=== PATIENT | male | born 1950 | race Caucasian/White ===

== ENCOUNTER 2021-01-06 09:12 | Inpatient (IN) | payer MEDICARE, MEDICAID ==
[~2021-01-06] VITALS: Ht 165.1 cm; Wt 65.0 kg
[2021-01-06] MEDS ORDERED: ACETAMINOPHEN 325MG TABLET PO ONE (09:45)
[2021-01-06 10:53] LABS: BASOPHILS % 0.5 % (0.0-2.0); EOSINOPHILS % 0.4 % (0.0-5.0); HEMATOCRIT. 42.5 % (42.0-52.0); HEMOGLOBIN. 14.5 g/dL (14.0-18.0); LYMPHOCYTES % 10.2 % (20.0-50.0); MEAN CORPUSCULAR HEMOGLOBIN 34.3 pg (28.0-32.0); MEAN CORPUSCULAR VOLUME 100.9 fL (80.0-94.0); MEAN PLATELET VOLUME 10.9 fl (7.4-10.4); MONOCYTES % 8.7 % (2.0-8.0); NEUTROPHILS % 80.2 % (40.0-76.0); PLATELET 59 x1000/uL (130-400); RED BLOOD CELL COUNT 4.21 mill/uL (4.7-6.1); RED CELL DISTRIBUTION WIDTH 14.9 % (11.6-14.6)
[2021-01-06 10:58] LABS: CHLORIDE 95 mEq/L (98-107)
[2021-01-06 11:07] LABS: CREATINE KINASE 75 IU/L (39-308)
[2021-01-06] MEDS ORDERED: CEFTRIAXONE 1 G PREMIX 50 ML IV ONE (14:15)
[2021-01-06] MEDS ORDERED: METRONIDAZOLE 500 MG PREMIX 100 ML IV ONE (14:15)
[2021-01-06 18:51] LABS: CLARITY URINE CLEAR (CLEAR); COLOR URINE ORANGE (YELLOW); KETONES URINE TRACE (NEGATIVE); LEUKOCYTE ESTERASE URINE TRACE (NEGATIVE); NITRITE URINE NEGATIVE (NEGATIVE); OCCULT BLOOD URINE NEGATIVE (NEGATIVE); PROTEIN URINE TRACE (NEGATIVE); SPECIFIC GRAVITY URINE 1.019 (1.005-1.030)
[2021-01-06] MEDS ORDERED: NA PHOS,M-B/NA PHOS,DI-BA ENEMA 118ML PR PRN (20:45)
[2021-01-06] MEDS ORDERED: ONDANSETRON HCL 4MG/2ML INJ IV PRN (20:45)
[2021-01-06] MEDS ORDERED: ACETAMINOPHEN 650MG SUPP PR PRN (20:45)
[2021-01-06] MEDS ORDERED: CLONIDINE 0.1MG TABLET PO PRN (20:45)
[2021-01-06] MEDS ORDERED: DEXTROSE 50% WATER 50ML SYRINGE IV PRN ×2 (20:45→22:30)
[2021-01-06] MEDS ORDERED: GUAIFENESIN 200MG/10ML SUGAR FREE UDC PO PRN (20:45)
[2021-01-06] MEDS ORDERED: PIPERACILLIN/TAZOBACTAM 3.375 G in DEXTROSE 5% WATER 50 ML IV SCH (20:45)
[2021-01-06] MEDS ORDERED: DOCUSATE SODIUM 100MG CAPSULE PO PRN (20:45)
[2021-01-06] MEDS ORDERED: MAGNESIUM/ALUMINUM HYDROXIDE/SIMETHICONE 30ML UDC PO PRN (20:45)
[2021-01-06] MEDS ORDERED: BLOOD SUGAR DIAGNOSTIC STRIP TEST SCH (21:00)
[2021-01-06 21:20] VITALS: BP 123/66
[2021-01-06 21:30] VITALS: BP 123/66
[2021-01-06] MEDS ORDERED: POTASSIUM CHLORIDE INJ 40 MEQ in DEXT 5% WATER 500 ML IV SCH (23:00)
[2021-01-06] MEDS: INSULIN LISPRO 100 UNITS/ML SUBCUT SCH (23:34)
[2021-01-06] MEDS: SODIUM CHLORIDE 0.45% 1,000 ML IV SCH (23:35)
[2021-01-07] VITALS: BP 155/76
[2021-01-07] MEDS ORDERED: METF-414 MT (02:29)
[2021-01-07] MEDS: PIPERACILLIN/TAZOBACTAM 3.375G in DEXT 5% WATER 50ML IV SCH ×4 (03:34→21:34)
[2021-01-07 04:00] VITALS: BP 164/73
[2021-01-07 06:29] LABS: BASOPHILS % 0.9 % (0.0-2.0); EOSINOPHILS % 0.9 % (0.0-5.0); HEMATOCRIT. 41.8 % (42.0-52.0); HEMOGLOBIN. 14.3 g/dL (14.0-18.0); LYMPHOCYTES % 15.9 % (20.0-50.0); MEAN CORPUSCULAR HEMOGLOBIN 34.2 pg (28.0-32.0); MEAN CORPUSCULAR VOLUME 100.3 fL (80.0-94.0); MEAN PLATELET VOLUME 10.9 fl (7.4-10.4); MONOCYTES % 12.8 % (2.0-8.0); NEUTROPHILS % 69.5 % (40.0-76.0); PLATELET 58 x1000/uL (130-400); RED BLOOD CELL COUNT 4.17 mill/uL (4.7-6.1); RED CELL DISTRIBUTION WIDTH 14.7 % (11.6-14.6)
[2021-01-07 06:40] LABS: CHLORIDE 97 mEq/L (98-107)
[2021-01-07 06:46] LABS: LDL CHOLESTEROL 133 mg/dL (5-100)
[2021-01-07 06:47] LABS: HDL CHOLESTEROL 18 mg/dL (40-59)
[2021-01-07] MEDS: BLOOD SUGAR DIAGNOSTIC STRIP TEST SCH ×4 (07:20→21:18)
[2021-01-07] MEDS: INSULIN LISPRO 100 UNITS/ML SUBCUT SCH ×4 (07:50→21:19)
[2021-01-07 08:00] VITALS: BP 156/65
[2021-01-07] MEDS ORDERED: ENOXAPARIN 40MG/0.4ML SYR SUBCUT SCH (09:00)
[2021-01-07 12:00] VITALS: BP 148/69
[2021-01-07] MEDS: SODIUM CHLORIDE 0.45% 1,000 ML IV SCH (13:25)
[2021-01-07 15:26] LABS: AMYLASE 95 IU/L (25-115)
[2021-01-07 16:00] VITALS: BP 136/64
[2021-01-07 20:00] VITALS: BP 138/69
[2021-01-08] VITALS: BP 124/68
[2021-01-08 04:00] VITALS: BP 151/70
[2021-01-08] MEDS: SODIUM CHLORIDE 0.45% 1,000 ML IV SCH ×2 (06:04→22:45)
[2021-01-08] MEDS: PIPERACILLIN/TAZOBACTAM 3.375G in DEXT 5% WATER 50ML IV SCH ×3 (06:04→21:35)
[2021-01-08 07:20] LABS: CHLORIDE 95 mEq/L (98-107)
[2021-01-08] MEDS: BLOOD SUGAR DIAGNOSTIC STRIP TEST SCH ×4 (07:20→21:00)
[2021-01-08] MEDS: INSULIN LISPRO 100 UNITS/ML SUBCUT SCH ×4 (07:50→21:00)
[2021-01-08 08:00] VITALS: BP 151/71
[2021-01-08] MEDS ORDERED: METR500T MT (10:37)
[2021-01-08] MEDS ORDERED: LEVO500T89 MT (10:37)
[2021-01-08] MEDS ORDERED: POTASSIUM CHLORIDE 20MEQ TABLET SR PO NR (10:45)
[2021-01-08] MEDS ORDERED: SODIUM CHLORIDE 0.9% 1000ML BAG (SEPSIS BOLUS) IV ONE (10:45)
[2021-01-08] MEDS ORDERED: SODIUM CHLORIDE 0.9% 500 ML IV NR (10:45)
[2021-01-08] MEDS ORDERED: NALOXONE HCL 0.4MG/ML VIAL IV PRN (11:00)
[2021-01-08 12:00] VITALS: BP 148/85
[2021-01-08] MEDS: HYDROCODONE/ACETAMINOPHEN 5/325MG TABLET PO PRN (13:09)
[2021-01-08 16:00] VITALS: BP 112/59
[2021-01-08 20:00] VITALS: BP_SYST 113; BP_SYST 139; BP_DIAS 61; BP_DIAS 65
[2021-01-08 23:00] LABS: HEMATOCRIT. 38.4 % (42.0-52.0); HEMOGLOBIN. 13.1 g/dL (14.0-18.0); MEAN CORPUSCULAR HEMOGLOBIN 34.3 pg (28.0-32.0); MEAN CORPUSCULAR VOLUME 100.7 fL (80.0-94.0); MEAN PLATELET VOLUME 10.8 fl (7.4-10.4); PLATELET 86 x1000/uL (130-400); RED BLOOD CELL COUNT 3.82 mill/uL (4.7-6.1); RED CELL DISTRIBUTION WIDTH 14.7 % (11.6-14.6)
[2021-01-08 23:16] LABS: PLATELET ESTIMATE DECREASED
[2021-01-09] VITALS (8 sets, daily range): BP systolic 94–171; BP diastolic 54–77
[2021-01-09 06:40] LABS: MEAN CORPUSCULAR HEMOGLOBIN 34.4 pg (28.0-32.0); MEAN CORPUSCULAR VOLUME 100.9 fL (80.0-94.0); MEAN PLATELET VOLUME 11.4 fl (7.4-10.4); PLATELET 79 x1000/uL (130-400); RED BLOOD CELL COUNT 4.06 mill/uL (4.7-6.1); RED CELL DISTRIBUTION WIDTH 14.7 % (11.6-14.6)
[2021-01-09 06:49] LABS: CHLORIDE 98 mEq/L (98-107)
[2021-01-09] MEDS ORDERED: INDOCYANINE GREEN 25 MG VIAL IV ONE (06:53)
[2021-01-09] MEDS ORDERED: LIDOCAINE HCL 1% 20ML VIAL (Pyxis) INJ ONE (06:54)
[2021-01-09] MEDS ORDERED: BUPIVACAINE HCL/PF 0.5% (5MG/ML) 10ML ONE (06:54)
[2021-01-09] MEDS ORDERED: SKIN ADHESIVE 0.7 GM EA TOP ONE (06:54)
[2021-01-09] MEDS ORDERED: POLYMYXIN B SULFATE 500000 UNITS/VIAL ONE (06:55)
[2021-01-09] MEDS: BLOOD SUGAR DIAGNOSTIC STRIP TEST SCH ×5 (07:20→21:00)
[2021-01-09] MEDS ORDERED: MIDAZOLAM HCL 2 MG/2 ML VIAL ONE (07:26)
[2021-01-09] MEDS ORDERED: ROCURONIUM BROMIDE 10MG/ML VIAL 5ML IV ONE ×2 (07:26→10:08)
[2021-01-09] MEDS ORDERED: PROPOFOL 200MG/20ML VIAL IV ONE (07:26)
[2021-01-09] MEDS ORDERED: CEFAZOLIN SODIUM 1000MG/VIAL ONE (07:26)
[2021-01-09] MEDS ORDERED: FENTANYL CITRATE/PF 50MCG/ML 2ML VIAL IV PRN (07:26)
[2021-01-09] MEDS ORDERED: FENTANYL CITRATE/PF 50MCG/ML 2ML VIAL ONE ×2 (07:26→10:52)
[2021-01-09] MEDS ORDERED: LIDOCAINE HCL/PF 1% 10 MG/ML 5ML VIAL ONE (07:26)
[2021-01-09] MEDS: INSULIN LISPRO 100 UNITS/ML SUBCUT SCH ×4 (07:34→21:00)
[2021-01-09] MEDS: PIPERACILLIN/TAZOBACTAM 3.375G in DEXT 5% WATER 50ML IV SCH ×3 (08:00→22:00)
[2021-01-09] MEDS ORDERED: PHENYLEPHRINE HCL 10 MG/ML 1ML (IV VIAL) IV ONE (08:20)
[2021-01-09] MEDS ORDERED: NEOSTIGMINE METHYLSULFATE 1MG/ML 10 ML VIAL ONE (10:26)
[2021-01-09] MEDS ORDERED: GLYCOPYRROLATE 0.2 MG/ML 2ML VIAL ONE (10:26)
[2021-01-09] MEDS ORDERED: ONDANSETRON HCL 4MG/2ML INJ IV PRN (10:30)
[2021-01-09] MEDS ORDERED: MEPERIDINE HCL/PF 25MG/ML CPJ IV PRN (10:30)
[2021-01-09] MEDS: HYDROMORPHONE HCL/PF 2MG/ML CPJ IV PRN ×2 (11:22→11:32)
[2021-01-09 15:25] LABS: PLATELET ESTIMATE DECREASED
[2021-01-09] MEDS: SODIUM CHLORIDE 0.45% 1,000 ML IV SCH (16:33)
[2021-01-09] MEDS ORDERED: SIMETHICONE 80MG TABLET CHEW PO NR (21:30)
[2021-01-09] MEDS ORDERED: SIMETHICONE 40 MG/0.6 ML 30ML PO SCH (21:30)
[2021-01-09] MEDS ORDERED: ONDANSETRON HCL 4MG/2ML INJ IV NR (21:30)
[2021-01-09 23:53] LABS: HEMATOCRIT. 38.3 % (42.0-52.0); MEAN CORPUSCULAR HEMOGLOBIN 34.8 pg (28.0-32.0); MEAN CORPUSCULAR VOLUME 102.6 fL (80.0-94.0); MEAN PLATELET VOLUME 9.7 fl (7.4-10.4); PLATELET 145 x1000/uL (130-400); RED BLOOD CELL COUNT 3.73 mill/uL (4.7-6.1)
[2021-01-10] VITALS: BP 158/81
[2021-01-10 00:03] LABS: INR 1.5; PROTHROMBIN TIME 15.4 sec (9.6-11.0)
[2021-01-10 01:53] LABS: PLATELET ESTIMATE NORMAL
[2021-01-10] MEDS: PIPERACILLIN/TAZOBACTAM 3.375G in DEXT 5% WATER 50ML IV SCH ×3 (06:00→21:42)
[2021-01-10 06:21] LABS: INR 1.5; PROTHROMBIN TIME 15.4 sec (9.6-11.0)
[2021-01-10 06:28] LABS: CHLORIDE 102 mEq/L (98-107)
[2021-01-10 06:32] LABS: BASOPHILS % 0.3 % (0.0-2.0); EOSINOPHILS % 0.3 % (0.0-5.0); HEMATOCRIT. 37.5 % (42.0-52.0); HEMOGLOBIN. 12.7 g/dL (14.0-18.0); LYMPHOCYTES % 8.8 % (20.0-50.0); MEAN CORPUSCULAR HEMOGLOBIN 34.6 pg (28.0-32.0); MEAN CORPUSCULAR VOLUME 101.9 fL (80.0-94.0); MEAN PLATELET VOLUME 10.3 fl (7.4-10.4); MONOCYTES % 14.3 % (2.0-8.0); NEUTROPHILS % 76.3 % (40.0-76.0); PLATELET 143 x1000/uL (130-400); RED BLOOD CELL COUNT 3.68 mill/uL (4.7-6.1); RED CELL DISTRIBUTION WIDTH 15.2 % (11.6-14.6)
[2021-01-10] MEDS: INSULIN LISPRO 100 UNITS/ML SUBCUT SCH ×4 (07:50→21:47)
[2021-01-10 08:00] VITALS: BP 138/71
[2021-01-10] MEDS: SODIUM CHLORIDE 0.45% 1,000 ML IV SCH (08:40)
[2021-01-10 12:00] VITALS: BP 126/77
[2021-01-10] MEDS: BLOOD SUGAR DIAGNOSTIC STRIP TEST SCH ×3 (12:56→21:41)
[2021-01-10] MEDS: HYDROCODONE/ACETAMINOPHEN 5/325MG TABLET PO PRN ×2 (13:08→21:45)
[2021-01-10 13:16] LABS: HEPATITIS B SURFACE ANTIGEN NEGATIVE
[2021-01-10 16:00] VITALS: BP 141/71
[2021-01-10 20:00] VITALS: BP 141/71
[2021-01-10] MEDS: TAMSULOSIN HCL 0.4MG SR CAPSULE PO SCH (21:42)
[2021-01-11] VITALS: BP 130/64
[2021-01-11 04:00] VITALS: BP 138/73
[2021-01-11] MEDS: PIPERACILLIN/TAZOBACTAM 3.375G in DEXT 5% WATER 50ML IV SCH ×2 (05:27→14:56)
[2021-01-11] MEDS: SODIUM CHLORIDE 0.45% 1,000 ML IV SCH (05:27)
[2021-01-11] MEDS: HYDROCODONE/ACETAMINOPHEN 5/325MG TABLET PO PRN ×2 (05:34→11:10)
[2021-01-11] MEDS: BLOOD SUGAR DIAGNOSTIC STRIP TEST SCH ×4 (07:38→21:08)
[2021-01-11] MEDS: INSULIN LISPRO 100 UNITS/ML SUBCUT SCH ×4 (07:50→21:41)
[2021-01-11] MEDS: TAMSULOSIN HCL 0.4MG SR CAPSULE PO SCH (09:31)
[2021-01-11 12:00] VITALS: BP 140/47
[2021-01-11 12:45] LABS: HEMATOCRIT. 33.5 % (42.0-52.0); HEMOGLOBIN. 11.4 g/dL (14.0-18.0); MEAN CORPUSCULAR HEMOGLOBIN 34.6 pg (28.0-32.0); MEAN CORPUSCULAR VOLUME 101.3 fL (80.0-94.0); PLATELET 106 x1000/uL (130-400); RED BLOOD CELL COUNT 3.31 mill/uL (4.7-6.1); RED CELL DISTRIBUTION WIDTH 14.5 % (11.6-14.6)
[2021-01-11 13:39] LABS: PLATELET ESTIMATE SLIGHTLY DECREASED
[2021-01-11 20:00] VITALS: BP 150/85
[2021-01-11] MEDS ORDERED: INFLUENZA VACCINE 05/PF 0.5 ML SYRINGE IM ONE (22:30)
[2021-01-12] VITALS: BP 160/72
[2021-01-12 04:00] VITALS: BP 158/80
[2021-01-12] MEDS ORDERED: LORAZEPAM 0.5MG TABLET PO PRN (06:15)
[2021-01-12] MEDS: BLOOD SUGAR DIAGNOSTIC STRIP TEST SCH ×3 (07:30→17:40)
[2021-01-12] MEDS: INSULIN LISPRO 100 UNITS/ML SUBCUT SCH ×3 (07:30→17:58)
[2021-01-12 08:00] VITALS: BP 166/84
[2021-01-12] MEDS: TAMSULOSIN HCL 0.4MG SR CAPSULE PO SCH (09:07)
[2021-01-12 12:00] VITALS: BP 138/78
[2021-01-12 15:07] VITALS: BP 138/78
[2021-01-12 16:00] VITALS: BP 143/54
[2021-01-13] MEDS ORDERED: ENOXAPARIN 40MG/0.4ML SYR SUBCUT SCH (21:00)
== END 2021-01-12 19:48 | DRG 417 ==
LOC: ER 09:46 → MICUSO 14:05 → 6EST 19:35
PROVIDERS: ADMIT Family Medicine; ATTEND Family Medicine
PROC: 0FT44ZZ Resection of Gallbladder, Percutaneous Endoscopic Approach (ICD-10-PCS; principal; 2021-01-09)
PROC: 8E0W4CZ Robotic Assisted Procedure of Trunk Region, Percutaneous Endoscopic Approach (ICD-10-PCS; 2021-01-09)
PROC: 30233R1 Transfusion of Nonautologous Platelets into Peripheral Vein, Percutaneous Approach (ICD-10-PCS; 2021-01-09)
DX: K80.01 Calculus of gallbladder with acute cholecystitis with obstruction (principal); N17.0 Acute kidney failure with tubular necrosis; E44.1 Mild protein-calorie malnutrition; E87.1 Hypo-osmolality and hyponatremia; D69.6 Thrombocytopenia, unspecified; E11.9 Type 2 diabetes mellitus without complications; E87.5 Hyperkalemia; I10 Essential (primary) hypertension; E78.5 Hyperlipidemia, unspecified; K76.0 Fatty (change of) liver, not elsewhere classified; R74.01 Elevation of levels of liver transaminase levels; K74.60 Unspecified cirrhosis of liver; Z20.822 Contact with and (suspected) exposure to COVID-19; R25.1 Tremor, unspecified; Z79.4 Long term (current) use of insulin; Z82.49 Family history of ischemic heart disease and other diseases of the circulatory system; Z68.23 Body mass index [BMI] 23.0-23.9, adult; Z79.84 Long term (current) use of oral hypoglycemic drugs; Z72.89 Other problems related to lifestyle; R74.8 Abnormal levels of other serum enzymes
CPT/HCPCS: 36415; 71045; 74181; 76705; 78227; 80048; 80053; 80061; 80076; 81003; 82150; 82248; 82550; 82962; 83036; 83880; 84484; 85025; 86705; 86709; 86803; 86850; 86900; 86945; 87340; 87426; 88304; 90686; 93005; 97116; 97162; 97164; 97166; 99291; A9537; C1893; J0690; J0696; J1170; J1815; J2250; J2370; J2405; J2543; J2704; J2710; J3010; J3480; J3490; J7040; J7042; J7060; P9034; Q9957

== ENCOUNTER 2021-01-15 10:59 | Emergency (ER) | payer MEDICARE, MEDICAID ==
[~2021-01-15] VITALS: Ht 167.6 cm; Wt 73.0 kg
[~2021-01-15 10:59] MED LIST: LEVO500T89 MT; METF-414 MT; METR500T MT
[2021-01-15 12:20] LABS: BASOPHILS % 1.2 % (0.0-2.0); EOSINOPHILS % 1.1 % (0.0-5.0); HEMATOCRIT. 37.2 % (42.0-52.0); HEMOGLOBIN. 12.7 g/dL (14.0-18.0); LYMPHOCYTES % 16.8 % (20.0-50.0); MEAN CORPUSCULAR HEMOGLOBIN 34.7 pg (28.0-32.0); MEAN CORPUSCULAR VOLUME 102.1 fL (80.0-94.0); MEAN PLATELET VOLUME 9.5 fl (7.4-10.4); MONOCYTES % 11.7 % (2.0-8.0); NEUTROPHILS % 69.2 % (40.0-76.0); PLATELET 205 x1000/uL (130-400); RED BLOOD CELL COUNT 3.65 mill/uL (4.7-6.1)
[2021-01-15 12:27] LABS: CHLORIDE 104 mEq/L (98-107)
[2021-01-15 13:17] LABS: CLARITY URINE CLEAR (CLEAR); COLOR URINE DK YELLOW (YELLOW); KETONES URINE NEGATIVE (NEGATIVE); LEUKOCYTE ESTERASE URINE NEGATIVE (NEGATIVE); NITRITE URINE NEGATIVE (NEGATIVE); OCCULT BLOOD URINE NEGATIVE (NEGATIVE); PH URINE 5.5 (4.5-8.0); PROTEIN URINE NEGATIVE (NEGATIVE); SPECIFIC GRAVITY URINE 1.029 (1.005-1.030); UROBILINOGEN URINE 0.2 E.U./dL (0.2-1.0)
[2021-01-15] MEDS ORDERED: IOHEXOL-300 100 ML BOTTLE ONE (14:01)
[2021-01-15 18:15] VITALS: BP 137/61
== END 2021-01-15 18:18 | disposition home or self-care (01) ==
LOC: ER 10:59
DX: R10.31 Right lower quadrant pain (principal); R74.8 Abnormal levels of other serum enzymes; J98.11 Atelectasis; K57.90 Diverticulosis of intestine, part unspecified, without perforation or abscess without bleeding; I10 Essential (primary) hypertension; E11.65 Type 2 diabetes mellitus with hyperglycemia; Z97.8 Presence of other specified devices; Z79.84 Long term (current) use of oral hypoglycemic drugs
CPT/HCPCS: 36415; 74177; 80053; 81003; 83690; 85025; 99285; Q9967

== ENCOUNTER 2021-01-29 17:02 | Inpatient (IN) | payer MEDICARE, MEDICAID ==
[~2021-01-29] VITALS: Ht 167.6 cm; Wt 75.0 kg
[2021-01-29] MEDS ORDERED: VANCOMYCIN 1 G PREMIX 200 ML IV ONE (17:30)
[2021-01-29] MEDS ORDERED: PIPERACILLIN/TAZ 3.375G PREMIX 50 ML IV ONE (17:30)
[2021-01-29] MEDS ORDERED: SODIUM CHLORIDE 0.9% 1000ML BAG (SEPSIS BOLUS) IV ONE (17:30)
[2021-01-29 17:59] LABS: HEMATOCRIT. 37.2 % (42.0-52.0); HEMOGLOBIN. 11.5 g/dL (14.0-18.0); MEAN PLATELET VOLUME 9.4 fl (7.4-10.4); PLATELET 254 x1000/uL (130-400); RED BLOOD CELL COUNT 3.38 mill/uL (4.7-6.1); RED CELL DISTRIBUTION WIDTH 15.8 % (11.6-14.6)
[2021-01-29 18:00] LABS: CHLORIDE 93 mEq/L (98-107)
[2021-01-29 18:05] LABS: INR 2.5; PROTHROMBIN TIME 24.7 sec (9.6-11.0)
[2021-01-29 19:01] LABS: PLATELET ESTIMATE NORMAL
[2021-01-29] MEDS ORDERED: INSULIN REGULAR (HUMULIN R) 300UNITS/3ML VIAL IV ONE (19:45)
[2021-01-29] MEDS ORDERED: DEXTROSE 50% WATER 50ML SYRINGE IV ONE (19:45)
[2021-01-30] VITALS (86 sets, daily range): BP systolic 60–151; BP diastolic 24–124
[2021-01-30] MEDS ORDERED: ALBUMIN HUMAN 25GM/100ML (25%) IV ONE (01:15)
[2021-01-30] MEDS ORDERED: ONDANSETRON HCL 4MG/2ML INJ IV PRN (01:15)
[2021-01-30] MEDS ORDERED: SODIUM BICARBONATE 150 MEQ in SODIUM CHLORIDE 0.45% 1,000 ML IV SCH (02:00)
[2021-01-30] MEDS ORDERED: NOREPINEPHRINE 8MG/250ML PMX 250 ML IV PRN (04:00)
[2021-01-30] MEDS ORDERED: ALBUMIN HUMAN 12.5G/250ML (5%) IV NR (04:15)
[2021-01-30] MEDS ORDERED: DEXTROSE 50% WATER 50ML SYRINGE IV PRN (04:30)
[2021-01-30 04:50] LABS: BG BASE EXCESS -25.7 mmol/L (-2.0-2.0); BG CARBOXYHEMOGLOBIN 0.3 % (0.5-1.5); BG DEOXYHEMOGLOBIN 3.6 % (0.0-5.0); BG FRACTION INSPIRED OXYGEN 28; BG HCO3 ACT 4.3 mmol/L (22.0-26.0); BG METHEMOGLOBIN 0.3 % (0.0-1.5); BG OXYGEN SATURATION 96.4 % (92.0-98.5); BG OXYHEMOGLOBIN 95.8 % (94.0-97.0); BG PCO2 18.6 mmHg (35.0-45.0); BG PO2 102.6 mmHg (75.0-100.0); BG SAMPLE SITE RIGHT BRACHIAL; BG TOTAL HEMOGLOBIN 11.8 g/dL (12.0-18.0); BG VENT MODE NASAL CANNULA
[2021-01-30] MEDS: INSULIN LISPRO 100 UNITS/ML SUBCUT SCH ×5 (05:00→21:00)
[2021-01-30] MEDS: BLOOD SUGAR DIAGNOSTIC STRIP TEST SCH ×5 (05:44→21:06)
[2021-01-30] MEDS ORDERED: PIPERACILLIN/TAZOBACTAM 3.375 G in DEXTROSE 5% WATER 50 ML IV SCH (06:00)
[2021-01-30] MEDS: METRONIDAZOLE 500 MG PREMIX 100 ML IV SCH ×2 (06:04→14:14)
[2021-01-30 06:07] LABS: CHLORIDE 99 mEq/L (98-107)
[2021-01-30 06:09] LABS: HEMATOCRIT. 35.6 % (42.0-52.0); HEMOGLOBIN. 10.7 g/dL (14.0-18.0); MEAN CORPUSCULAR HEMOGLOBIN 34.1 pg (28.0-32.0); RED BLOOD CELL COUNT 3.15 mill/uL (4.7-6.1); RED CELL DISTRIBUTION WIDTH 15.5 % (11.6-14.6)
[2021-01-30 06:10] LABS: INR 2.8; PROTHROMBIN TIME 28.1 sec (9.6-11.0)
[2021-01-30] MEDS: PIPERACILLIN/TAZOBACTAM 3.375 G in DEXTROSE 5% WATER 50 ML IV SCH ×2 (06:59→21:22)
[2021-01-30] MEDS ORDERED: ALBUMIN HUMAN 25GM/100ML (25%) IV SCH (07:15)
[2021-01-30 09:10] LABS: PLATELET 226 x1000/uL (130-400)
[2021-01-30] MEDS ORDERED: SODIUM BICARBONATE 8.4% 1 MEQ/ML 50ML SYR IV NR (09:15)
[2021-01-30] MEDS: FAMOTIDINE 20MG/2ML VIAL IV SCH (09:31)
[2021-01-30 10:24] LABS: LDL CHOLESTEROL 18 mg/dL (5-100)
[2021-01-30 10:26] LABS: HDL CHOLESTEROL 11 mg/dL (40-59); T4 FREE 0.91 ng/dL (0.76-1.46)
[2021-01-30] MEDS: SODIUM BICARBONATE 150 MEQ in DEXTROSE 5% WATER 1,000 ML IV SCH ×2 (10:44→20:13)
[2021-01-30] MEDS: NOREPINEPHRINE 8 MG in DEXTROSE 5% WATER 250 ML IV PRN ×2 (10:45→16:40)
[2021-01-30 13:57] LABS: CLARITY URINE CLOUDY (CLEAR); COLOR URINE DARK YELLOW (YELLOW); KETONES URINE TRACE (NEGATIVE); LEUKOCYTE ESTERASE URINE TRACE (NEGATIVE); NITRITE URINE NEGATIVE (NEGATIVE); OCCULT BLOOD URINE 3+ (NEGATIVE); PROTEIN URINE TRACE (NEGATIVE); SPECIFIC GRAVITY URINE 1.017 (1.005-1.030); UROBILINOGEN URINE 0.2 E.U./dL (0.2-1.0)
[2021-01-30 14:44] LABS: *AMPHETAMINES SCREEN URINE NEGATIVE (NEGATIVE); *BARBITURATES SCREEN URINE NEGATIVE (NEGATIVE); *BENZODIAZEPINES SCREEN URINE NEGATIVE (NEGATIVE)
[2021-01-30 14:45] LABS: *COCAINE SCREEN URINE NEGATIVE (NEGATIVE); CANNABINOID URINE SCREEN NEGATIVE (NEGATIVE); METHADONE URINE SCREEN NEGATIVE (NEGATIVE); OPIATES URINE SCREEN NEGATIVE (NEGATIVE); PHENCYCLIDINE URINE SCREEN NEGATIVE (NEGATIVE)
[2021-01-30 15:26] LABS: CREATINE KINASE MB FRACTION 10.7 ng/mL (0.5-3.6)
[2021-01-30] MEDS ORDERED: VANCOMYCIN 500 MG PREMIX 100 ML IV NR (16:00)
[2021-01-30] MEDS ORDERED: SKIN ADHESIVE 0.7 GM EA TOP ONE (23:39)
[2021-01-30] MEDS ORDERED: LIDOCAINE HCL 1% 20ML VIAL (Pyxis) INJ ONE (23:39)
[2021-01-30] MEDS ORDERED: POLYMYXIN B SULFATE 500000 UNITS/VIAL ONE (23:39)
[2021-01-30] MEDS ORDERED: BUPIVACAINE HCL/PF 0.5% (5MG/ML) 10ML ONE (23:39)
[2021-01-31] VITALS (93 sets, daily range): BP systolic 83–124; BP diastolic 32–83
[2021-01-31] MEDS ORDERED: MIDAZOLAM HCL 2 MG/2 ML VIAL ONE (01:03)
[2021-01-31] MEDS ORDERED: FENTANYL CITRATE/PF 50MCG/ML 2ML VIAL ONE (01:03)
[2021-01-31] MEDS ORDERED: MORPHINE SULFATE 4 MG/ML CPJ (NOT FOR IM USE) IV PRN (01:30)
[2021-01-31] MEDS ORDERED: NALOXONE HCL 0.4MG/ML VIAL IV PRN (01:45)
[2021-01-31] MEDS: NOREPINEPHRINE 8 MG in DEXTROSE 5% WATER 250 ML IV PRN ×2 (02:13→13:41)
[2021-01-31 02:46] LABS: BG BASE EXCESS -5.5 mmol/L (-2.0-2.0); BG CARBOXYHEMOGLOBIN 0.1 % (0.5-1.5); BG DEOXYHEMOGLOBIN 13.6 % (0.0-5.0); BG FRACTION INSPIRED OXYGEN 100; BG HCO3 ACT 20.9 mmol/L (22.0-26.0); BG METHEMOGLOBIN 0.3 % (0.0-1.5); BG OXYGEN SATURATION 86.3 % (92.0-98.5); BG PCO2 45.2 mmHg (35.0-45.0); BG PH 7.283 (7.350-7.450); BG PO2 55.7 mmHg (75.0-100.0); BG SAMPLE SITE LEFT RADIAL; BG TOTAL HEMOGLOBIN 9.4 g/dL (12.0-18.0); BG VENT MODE VENT - AC
[2021-01-31] MEDS ORDERED: FENTANYL CITRATE/PF 1,000 MCG in SODIUM CHLORIDE 0.9% 80 ML IV PRN (03:00)
[2021-01-31] MEDS ORDERED: PROPOFOL 10MG/ML 100ML 100 ML IV PRN (03:00)
[2021-01-31] MEDS ORDERED: FENTANYL CITRATE 2,500 MCG in SODIUM CHLORIDE 0.9% 200 ML IV PRN (03:15)
[2021-01-31] MEDS: SODIUM BICARBONATE 150 MEQ in DEXTROSE 5% WATER 1,000 ML IV SCH (05:20)
[2021-01-31] MEDS: INSULIN LISPRO 100 UNITS/ML SUBCUT SCH ×4 (05:22→23:19)
[2021-01-31] MEDS: BLOOD SUGAR DIAGNOSTIC STRIP TEST SCH ×4 (05:27→23:19)
[2021-01-31] MEDS ORDERED: VANCOMYCIN 750 MG PREMIX 150 ML IV SCH (06:00)
[2021-01-31 06:20] LABS: HEMATOCRIT. 25.3 % (42.0-52.0); MEAN CORPUSCULAR HEMOGLOBIN 36.1 pg (28.0-32.0); MEAN PLATELET VOLUME 9.1 fl (7.4-10.4); PLATELET 152 x1000/uL (130-400); RED BLOOD CELL COUNT 2.48 mill/uL (4.7-6.1); RED CELL DISTRIBUTION WIDTH 14.9 % (11.6-14.6)
[2021-01-31 06:38] LABS: CHLORIDE 96 mEq/L (98-107)
[2021-01-31 06:52] LABS: CREATINE KINASE 132 IU/L (39-308)
[2021-01-31 06:55] LABS: CREATINE KINASE MB FRACTION 8.3 ng/mL (0.5-3.6)
[2021-01-31 09:07] LABS: BG BASE EXCESS -1.4 mmol/L (-2.0-2.0); BG CARBOXYHEMOGLOBIN 0.3 % (0.5-1.5); BG DEOXYHEMOGLOBIN 2.9 % (0.0-5.0); BG FRACTION INSPIRED OXYGEN 100; BG HCO3 ACT 21.1 mmol/L (22.0-26.0); BG METHEMOGLOBIN 0.6 % (0.0-1.5); BG OXYGEN SATURATION 97.1 % (92.0-98.5); BG OXYHEMOGLOBIN 96.2 % (94.0-97.0); BG PH 7.496 (7.350-7.450); BG PO2 92.8 mmHg (75.0-100.0); BG SAMPLE SITE RIGHT BRACHIAL; BG TOTAL HEMOGLOBIN 9.3 g/dL (12.0-18.0); BG TOTAL RESPIRATORY RATE 19 b/min; BG VENT MODE VENT - AC
[2021-01-31] MEDS: FAMOTIDINE 20MG/2ML VIAL IV SCH (09:24)
[2021-01-31] MEDS: PIPERACILLIN/TAZOBACTAM 3.375 G in DEXTROSE 5% WATER 50 ML IV SCH (09:25)
[2021-01-31 10:37] LABS: PLATELET ESTIMATE NORMAL
[2021-01-31] MEDS: SODIUM CHLORIDE 23.4% 154 MEQ in DEXT 10% WATER 1,000 ML IV SCH ×2 (11:34→18:31)
[2021-01-31] MEDS: PIPERACILLIN/TAZOBACTAM 3.375G in DEXT 5% WATER 50ML IV SCH ×2 (15:32→23:18)
[2021-01-31] MEDS ORDERED: VANCOMYCIN 1 G PREMIX 200 ML IV NR (18:00)
[2021-01-31] MEDS: DEXT 5%/0.9% NACL 1,000 ML IV SCH (18:55)
[2021-02-01] VITALS (62 sets, daily range): BP systolic 84–139; BP diastolic 37–74
[2021-02-01] MEDS: DEXT 5%/0.9% NACL 1,000 ML IV SCH (02:56)
[2021-02-01] MEDS: PIPERACILLIN/TAZOBACTAM 3.375G in DEXT 5% WATER 50ML IV SCH ×3 (05:13→21:03)
[2021-02-01] MEDS: INSULIN LISPRO 100 UNITS/ML SUBCUT SCH ×3 (05:13→20:58)
[2021-02-01] MEDS: BLOOD SUGAR DIAGNOSTIC STRIP TEST SCH ×4 (05:54→23:59)
[2021-02-01 06:08] LABS: CHLORIDE 100 mEq/L (98-107)
[2021-02-01 06:14] LABS: HEMATOCRIT. 25.4 % (42.0-52.0); HEMOGLOBIN. 8.4 g/dL (14.0-18.0); MEAN CORPUSCULAR HEMOGLOBIN 33.7 pg (28.0-32.0); MEAN CORPUSCULAR VOLUME 101.9 fL (80.0-94.0); MEAN PLATELET VOLUME 9.3 fl (7.4-10.4); PLATELET 94 x1000/uL (130-400); RED CELL DISTRIBUTION WIDTH 15.1 % (11.6-14.6)
[2021-02-01 06:20] LABS: PHOSPHORUS 3.1 mg/dL (2.5-4.9)
[2021-02-01 08:45] LABS: PLATELET ESTIMATE DECREASED
[2021-02-01] MEDS: FAMOTIDINE 20MG/2ML VIAL IV SCH (08:59)
[2021-02-01 09:25] LABS: BG BASE EXCESS 6.4 mmol/L (-2.0-2.0); BG CARBOXYHEMOGLOBIN 0.3 % (0.5-1.5); BG DEOXYHEMOGLOBIN 1.2 % (0.0-5.0); BG FRACTION INSPIRED OXYGEN 70; BG METHEMOGLOBIN 0.3 % (0.0-1.5); BG OXYGEN SATURATION 98.8 % (92.0-98.5); BG OXYHEMOGLOBIN 98.2 % (94.0-97.0); BG PH 7.504 (7.350-7.450); BG PO2 152.4 mmHg (75.0-100.0); BG SAMPLE SITE RIGHT RADIAL; BG TOTAL HEMOGLOBIN 8.7 g/dL (12.0-18.0); BG VENT MODE VENT - AC
[2021-02-01] MEDS: SODIUM CHLORIDE 0.9% 1,000 ML IV SCH ×2 (11:07→21:44)
[2021-02-01] MEDS ORDERED: PROPOFOL 10MG/ML 100ML 100 ML IV PRN (14:45)
[2021-02-02] VITALS (88 sets, daily range): BP systolic 82–139; BP diastolic 43–75
[2021-02-02] MEDS: INSULIN LISPRO 100 UNITS/ML SUBCUT SCH ×3 (00:05→18:34)
[2021-02-02] MEDS: PIPERACILLIN/TAZOBACTAM 3.375G in DEXT 5% WATER 50ML IV SCH ×3 (06:01→22:02)
[2021-02-02] MEDS: BLOOD SUGAR DIAGNOSTIC STRIP TEST SCH ×3 (06:01→18:48)
[2021-02-02 07:09] LABS: HEMOGLOBIN. 9.4 g/dL (14.0-18.0); MEAN CORPUSCULAR HEMOGLOBIN 34.3 pg (28.0-32.0); MEAN CORPUSCULAR VOLUME 101.9 fL (80.0-94.0); MEAN PLATELET VOLUME 9.1 fl (7.4-10.4); PLATELET 85 x1000/uL (130-400); RED BLOOD CELL COUNT 2.75 mill/uL (4.7-6.1); RED CELL DISTRIBUTION WIDTH 15.2 % (11.6-14.6)
[2021-02-02] MEDS: SODIUM CHLORIDE 0.9% 1,000 ML IV SCH (08:15)
[2021-02-02 08:26] LABS: BG BASE EXCESS 2.1 mmol/L (-2.0-2.0); BG CARBOXYHEMOGLOBIN 0.2 % (0.5-1.5); BG DEOXYHEMOGLOBIN 2.8 % (0.0-5.0); BG FRACTION INSPIRED OXYGEN 70; BG HCO3 ACT 24.5 mmol/L (22.0-26.0); BG OXYGEN SATURATION 97.2 % (92.0-98.5); BG PCO2 29.9 mmHg (35.0-45.0); BG PH 7.531 (7.350-7.450); BG PO2 102.4 mmHg (75.0-100.0); BG TOTAL HEMOGLOBIN 9.3 g/dL (12.0-18.0); BG VENT MODE VENT - AC
[2021-02-02] MEDS: FAMOTIDINE 20MG/2ML VIAL IV SCH (09:15)
[2021-02-02 13:40] LABS: BG BASE EXCESS 1.2 mmol/L (-2.0-2.0); BG CARBOXYHEMOGLOBIN 0.3 % (0.5-1.5); BG DEOXYHEMOGLOBIN 3.1 % (0.0-5.0); BG FRACTION INSPIRED OXYGEN 50; BG HCO3 ACT 25.2 mmol/L (22.0-26.0); BG METHEMOGLOBIN 0.4 % (0.0-1.5); BG OXYGEN SATURATION 96.9 % (92.0-98.5); BG OXYHEMOGLOBIN 96.2 % (94.0-97.0); BG PCO2 37.6 mmHg (35.0-45.0); BG PH 7.444 (7.350-7.450); BG PO2 93.1 mmHg (75.0-100.0); BG SAMPLE SITE RIGHT RADIAL; BG TOTAL HEMOGLOBIN 10.7 g/dL (12.0-18.0); BG VENT MODE VENT - CPAP
[2021-02-02] MEDS ORDERED: KCL 20MEQ/100ML PREMIX 100 ML IV NR (14:00)
[2021-02-02 14:25] LABS: PLATELET ESTIMATE DECREASED
[2021-02-02] MEDS ORDERED: VANCOMYCIN 750 MG PREMIX 150 ML IV NR (18:00)
[2021-02-03] VITALS (40 sets, daily range): BP systolic 94–199; BP diastolic 56–160
[2021-02-03] MEDS: BLOOD SUGAR DIAGNOSTIC STRIP TEST SCH ×4 (00:16→18:06)
[2021-02-03] MEDS: INSULIN LISPRO 100 UNITS/ML SUBCUT SCH ×4 (00:25→18:00)
[2021-02-03] MEDS: SODIUM CHLORIDE 0.9% 1,000 ML IV SCH ×4 (00:28→11:47)
[2021-02-03 07:04] LABS: HEMATOCRIT. 29.5 % (42.0-52.0); MEAN CORPUSCULAR HEMOGLOBIN 34.2 pg (28.0-32.0); MEAN PLATELET VOLUME 9.4 fl (7.4-10.4); PLATELET 74 x1000/uL (130-400); RED BLOOD CELL COUNT 2.92 mill/uL (4.7-6.1); RED CELL DISTRIBUTION WIDTH 15.4 % (11.6-14.6)
[2021-02-03] MEDS: PIPERACILLIN/TAZOBACTAM 3.375G in DEXT 5% WATER 50ML IV SCH (07:04)
[2021-02-03 07:11] LABS: CHLORIDE 110 mEq/L (98-107)
[2021-02-03] MEDS: FAMOTIDINE 20MG/2ML VIAL IV SCH (11:20)
[2021-02-03 11:32] LABS: PLATELET ESTIMATE DECREASED
[2021-02-03] MEDS: MORPHINE SULFATE 2 MG/ML CPJ (NOT FOR IM USE) IV PRN ×2 (12:19→18:07)
[2021-02-04] VITALS: BP 112/58
[2021-02-04] MEDS: BLOOD SUGAR DIAGNOSTIC STRIP TEST SCH ×4 (01:00→23:22)
[2021-02-04 08:00] VITALS: BP 124/79
[2021-02-04] MEDS ORDERED: VANCOMYCIN 750 MG PREMIX 150 ML IV NR (08:00)
[2021-02-04] MEDS: FAMOTIDINE 20MG/2ML VIAL IV SCH (08:46)
[2021-02-04] MEDS: SODIUM CHLORIDE 0.9% 1,000 ML IV SCH (08:47)
[2021-02-04 11:03] LABS: HEMATOCRIT. 28.5 % (42.0-52.0); HEMOGLOBIN. 9.6 g/dL (14.0-18.0); MEAN CORPUSCULAR HEMOGLOBIN 34.6 pg (28.0-32.0); MEAN CORPUSCULAR VOLUME 102.8 fL (80.0-94.0); MEAN PLATELET VOLUME 10.1 fl (7.4-10.4); PLATELET 62 x1000/uL (130-400); RED BLOOD CELL COUNT 2.78 mill/uL (4.7-6.1); RED CELL DISTRIBUTION WIDTH 15.7 % (11.6-14.6)
[2021-02-04 11:09] LABS: CHLORIDE 109 mEq/L (98-107)
[2021-02-04 12:00] VITALS: BP 114/72
[2021-02-04] MEDS: INSULIN LISPRO 100 UNITS/ML SUBCUT SCH ×4 (12:12→23:26)
[2021-02-04 13:30] LABS: PLATELET ESTIMATE DECREASED
[2021-02-04 16:30] VITALS: BP 133/61
[2021-02-04] MEDS: MORPHINE SULFATE 2 MG/ML CPJ (NOT FOR IM USE) IV PRN (18:11)
[2021-02-04 20:00] VITALS: BP 142/80
[2021-02-05] VITALS: BP 113/62
[2021-02-05 04:00] VITALS: BP 123/92
[2021-02-05] MEDS: MORPHINE SULFATE 2 MG/ML CPJ (NOT FOR IM USE) IV PRN ×3 (04:54→11:39)
[2021-02-05] MEDS: BLOOD SUGAR DIAGNOSTIC STRIP TEST SCH ×3 (05:02→18:08)
[2021-02-05] MEDS: SODIUM CHLORIDE 0.9% 1,000 ML IV SCH ×2 (05:08→21:08)
[2021-02-05] MEDS: INSULIN LISPRO 100 UNITS/ML SUBCUT SCH ×3 (05:08→18:12)
[2021-02-05 06:26] LABS: HEMOGLOBIN. 9.2 g/dL (14.0-18.0); MEAN CORPUSCULAR HEMOGLOBIN 33.8 pg (28.0-32.0); MEAN CORPUSCULAR VOLUME 102.5 fL (80.0-94.0); MEAN PLATELET VOLUME 10.4 fl (7.4-10.4); PLATELET 59 x1000/uL (130-400); RED BLOOD CELL COUNT 2.73 mill/uL (4.7-6.1); RED CELL DISTRIBUTION WIDTH 15.3 % (11.6-14.6)
[2021-02-05 07:20] LABS: CHLORIDE 111 mEq/L (98-107)
[2021-02-05 07:31] LABS: PHOSPHORUS 2.9 mg/dL (2.5-4.9)
[2021-02-05 08:00] VITALS: BP 118/66
[2021-02-05] MEDS: FAMOTIDINE 20MG/2ML VIAL IV SCH (08:55)
[2021-02-05 12:13] VITALS: BP 138/69
[2021-02-05 16:00] VITALS: BP 124/79
[2021-02-05 17:26] LABS: PLATELET ESTIMATE DECREASED
[2021-02-05] MEDS: FLUCONAZOLE 400MG/200ML BAG 200 ML IV SCH (18:12)
[2021-02-05 18:33] LABS: INR 2.2; PROTHROMBIN TIME 22.4 sec (9.6-11.0)
[2021-02-05] MEDS ORDERED: MORPHINE SULFATE 2 MG/ML CPJ (NOT FOR IM USE) IV PRN (19:30)
[2021-02-05 20:00] VITALS: BP 121/69
[2021-02-05] MEDS: VANCOMYCIN 1 G PREMIX 200 ML IV SCH (22:09)
[2021-02-06] VITALS: BP 132/72
[2021-02-06] MEDS: BLOOD SUGAR DIAGNOSTIC STRIP TEST SCH ×4 (00:50→17:14)
[2021-02-06] MEDS: INSULIN LISPRO 100 UNITS/ML SUBCUT SCH ×4 (00:55→17:28)
[2021-02-06 04:00] VITALS: BP 133/74
[2021-02-06 06:31] LABS: BASOPHILS % 0.4 % (0.0-2.0); EOSINOPHILS % 1.6 % (0.0-5.0); HEMATOCRIT. 30.1 % (42.0-52.0); HEMOGLOBIN. 9.9 g/dL (14.0-18.0); LYMPHOCYTES % 7.6 % (20.0-50.0); MEAN CORPUSCULAR HEMOGLOBIN 33.8 pg (28.0-32.0); MEAN CORPUSCULAR VOLUME 102.4 fL (80.0-94.0); MEAN PLATELET VOLUME 10.9 fl (7.4-10.4); MONOCYTES % 9.5 % (2.0-8.0); NEUTROPHILS % 80.9 % (40.0-76.0); PLATELET 78 x1000/uL (130-400); RED BLOOD CELL COUNT 2.94 mill/uL (4.7-6.1); RED CELL DISTRIBUTION WIDTH 15.1 % (11.6-14.6)
[2021-02-06 06:46] LABS: CHLORIDE 113 mEq/L (98-107)
[2021-02-06 08:00] VITALS: BP 151/72
[2021-02-06] MEDS: FAMOTIDINE 20MG/2ML VIAL IV SCH (08:48)
[2021-02-06 12:00] VITALS: BP 139/65
[2021-02-06] MEDS: SODIUM CHLORIDE 0.45% 1,000 ML IV SCH (12:13)
[2021-02-06] MEDS ORDERED: INSULIN GLARGINE UD 100 UNITS/ML SYR SUBCUT NR (13:30)
[2021-02-06 16:00] VITALS: BP 102/72
[2021-02-06] MEDS: FLUCONAZOLE 400MG/200ML BAG 200 ML IV SCH (17:30)
[2021-02-06 20:00] VITALS: BP 120/71
[2021-02-07] VITALS: BP 146/68
[2021-02-07] MEDS: SODIUM CHLORIDE 0.45% 1,000 ML IV SCH ×2 (00:22→17:49)
[2021-02-07] MEDS: BLOOD SUGAR DIAGNOSTIC STRIP TEST SCH ×5 (00:22→23:21)
[2021-02-07] MEDS: INSULIN LISPRO 100 UNITS/ML SUBCUT SCH ×5 (00:23→23:21)
[2021-02-07] MEDS: HYDROCODONE/ACETAMINOPHEN 5/325MG TABLET PO PRN ×3 (03:39→20:58)
[2021-02-07 04:00] VITALS: BP 140/80
[2021-02-07 06:38] LABS: BASOPHILS % 0.6 % (0.0-2.0); EOSINOPHILS % 1.6 % (0.0-5.0); HEMATOCRIT. 28.5 % (42.0-52.0); HEMOGLOBIN. 9.6 g/dL (14.0-18.0); LYMPHOCYTES % 8.3 % (20.0-50.0); MEAN CORPUSCULAR HEMOGLOBIN 34.9 pg (28.0-32.0); MEAN CORPUSCULAR VOLUME 103.8 fL (80.0-94.0); MONOCYTES % 8.8 % (2.0-8.0); NEUTROPHILS % 80.7 % (40.0-76.0); RED BLOOD CELL COUNT 2.75 mill/uL (4.7-6.1); RED CELL DISTRIBUTION WIDTH 15.2 % (11.6-14.6)
[2021-02-07 06:52] LABS: CHLORIDE 114 mEq/L (98-107)
[2021-02-07 07:00] LABS: PHOSPHORUS 2.5 mg/dL (2.5-4.9)
[2021-02-07 08:00] VITALS: BP 123/81
[2021-02-07] MEDS: VANCOMYCIN 1 G PREMIX 200 ML IV SCH (09:03)
[2021-02-07] MEDS: FAMOTIDINE 20MG/2ML VIAL IV SCH (09:03)
[2021-02-07] MEDS: INSULIN GLARGINE UD 100 UNITS/ML SYR SUBCUT SCH (09:18)
[2021-02-07 10:13] LABS: PLATELET 78 x1000/uL (130-400)
[2021-02-07] MEDS ORDERED: LANTUSUD SUBCUT (11:04)
[2021-02-07] MEDS ORDERED: INSLIS SUBCUT (11:07)
[2021-02-07] MEDS ORDERED: FAMO40TA70 MT (11:07)
[2021-02-07 12:00] VITALS: BP 109/63
[2021-02-07 16:00] VITALS: BP 152/81
[2021-02-07 17:35] LABS: HEMATOCRIT 29.1 % (42.0-52.0); HEMOGLOBIN 9.4 g/dL (14.0-18.0)
[2021-02-07] MEDS: FLUCONAZOLE 400MG/200ML BAG 200 ML IV SCH (17:49)
[2021-02-07 20:00] VITALS: BP 128/69
[2021-02-08] VITALS: BP 134/76
[2021-02-08 00:10] LABS: BASOPHILS % 0.9 % (0.0-2.0); EOSINOPHILS % 2.2 % (0.0-5.0); HEMATOCRIT. 26.9 % (42.0-52.0); MEAN CORPUSCULAR HEMOGLOBIN 34.2 pg (28.0-32.0); MEAN CORPUSCULAR VOLUME 101.8 fL (80.0-94.0); MEAN PLATELET VOLUME 10.9 fl (7.4-10.4); MONOCYTES % 9.1 % (2.0-8.0); NEUTROPHILS % 79.8 % (40.0-76.0); PLATELET 75 x1000/uL (130-400); RED BLOOD CELL COUNT 2.64 mill/uL (4.7-6.1); RED CELL DISTRIBUTION WIDTH 14.8 % (11.6-14.6)
[2021-02-08 04:00] VITALS: BP 117/70
[2021-02-08] MEDS: BLOOD SUGAR DIAGNOSTIC STRIP TEST SCH ×4 (05:27→23:37)
[2021-02-08] MEDS: INSULIN LISPRO 100 UNITS/ML SUBCUT SCH ×4 (05:27→23:37)
[2021-02-08] MEDS: SODIUM CHLORIDE 0.45% 1,000 ML IV SCH (05:42)
[2021-02-08 06:09] LABS: EOSINOPHILS % 2.4 % (0.0-5.0); HEMATOCRIT. 29.8 % (42.0-52.0); HEMOGLOBIN. 9.8 g/dL (14.0-18.0); MEAN CORPUSCULAR HEMOGLOBIN 33.9 pg (28.0-32.0); MEAN PLATELET VOLUME 10.8 fl (7.4-10.4); MONOCYTES % 10.2 % (2.0-8.0); NEUTROPHILS % 76.4 % (40.0-76.0); PLATELET 87 x1000/uL (130-400); RED BLOOD CELL COUNT 2.89 mill/uL (4.7-6.1); RED CELL DISTRIBUTION WIDTH 15.4 % (11.6-14.6)
[2021-02-08 06:28] LABS: CHLORIDE 113 mEq/L (98-107)
[2021-02-08 06:55] LABS: PHOSPHORUS 2.6 mg/dL (2.5-4.9)
[2021-02-08 08:00] VITALS: BP 124/62
[2021-02-08] MEDS: FAMOTIDINE 20MG/2ML VIAL IV SCH (09:09)
[2021-02-08] MEDS: HYDROCODONE/ACETAMINOPHEN 5/325MG TABLET PO PRN (09:11)
[2021-02-08 10:54] LABS: INR 1.9; PROTHROMBIN TIME 19.4 sec (9.6-11.0)
[2021-02-08] MEDS: INSULIN GLARGINE UD 100 UNITS/ML SYR SUBCUT SCH (11:20)
[2021-02-08 12:00] VITALS: BP 126/60
[2021-02-08 16:00] VITALS: BP 130/64
[2021-02-08] MEDS: FLUCONAZOLE 400MG/200ML BAG 200 ML IV SCH (17:52)
[2021-02-08 20:00] VITALS: BP 137/65
[2021-02-08] MEDS: VANCOMYCIN 1250MG in DEXTROSE 5% WATER 250ML IV SCH (20:52)
[2021-02-09] VITALS: BP 121/70
[2021-02-09 04:00] VITALS: BP 105/57
[2021-02-09] MEDS: INSULIN LISPRO 100 UNITS/ML SUBCUT SCH ×4 (06:00→23:27)
[2021-02-09] MEDS: BLOOD SUGAR DIAGNOSTIC STRIP TEST SCH ×4 (06:12→23:27)
[2021-02-09] MEDS: HYDROCODONE/ACETAMINOPHEN 5/325MG TABLET PO PRN (06:13)
[2021-02-09 08:00] VITALS: BP 121/55
[2021-02-09 08:11] LABS: BASOPHILS % 1.5 % (0.0-2.0); EOSINOPHILS % 1.5 % (0.0-5.0); HEMATOCRIT. 27.8 % (42.0-52.0); HEMOGLOBIN. 9.4 g/dL (14.0-18.0); LYMPHOCYTES % 9.3 % (20.0-50.0); MEAN CORPUSCULAR HEMOGLOBIN 34.5 pg (28.0-32.0); MEAN CORPUSCULAR VOLUME 101.6 fL (80.0-94.0); MEAN PLATELET VOLUME 10.5 fl (7.4-10.4); NEUTROPHILS % 77.7 % (40.0-76.0); PLATELET 98 x1000/uL (130-400); RED BLOOD CELL COUNT 2.74 mill/uL (4.7-6.1); RED CELL DISTRIBUTION WIDTH 15.8 % (11.6-14.6)
[2021-02-09 08:33] LABS: CHLORIDE 115 mEq/L (98-107)
[2021-02-09] MEDS: FAMOTIDINE 20MG/2ML VIAL IV SCH (10:05)
[2021-02-09] MEDS: INSULIN GLARGINE UD 100 UNITS/ML SYR SUBCUT SCH (10:08)
[2021-02-09 12:00] VITALS: BP 118/56
[2021-02-09] MEDS ORDERED: FLUC200T MT (13:02)
[2021-02-09] MEDS: TRAMADOL 50MG TABLET PO PRN (15:03)
[2021-02-09 16:00] VITALS: BP 109/55
[2021-02-09] MEDS: FLUCONAZOLE 400MG/200ML BAG 200 ML IV SCH (18:36)
[2021-02-09 20:00] VITALS: BP 122/55
[2021-02-09] MEDS: ASCORBIC ACID 500 MG TABLET PO SCH (21:15)
[2021-02-09] MEDS: ZINC SULFATE 220 MG ( 50 ) CAPSULE PO SCH (21:15)
[2021-02-10] VITALS: BP 126/63
[2021-02-10 04:00] VITALS: BP 130/55
[2021-02-10] MEDS: BLOOD SUGAR DIAGNOSTIC STRIP TEST SCH ×2 (05:01→11:22)
[2021-02-10] MEDS: INSULIN LISPRO 100 UNITS/ML SUBCUT SCH ×2 (05:01→11:28)
[2021-02-10 07:28] LABS: CHLORIDE 115 mEq/L (98-107)
[2021-02-10 07:35] LABS: BASOPHILS % 1.4 % (0.0-2.0); EOSINOPHILS % 1.5 % (0.0-5.0); HEMATOCRIT. 27.2 % (42.0-52.0); HEMOGLOBIN. 9.1 g/dL (14.0-18.0); LYMPHOCYTES % 10.8 % (20.0-50.0); MEAN CORPUSCULAR HEMOGLOBIN 34.7 pg (28.0-32.0); MEAN CORPUSCULAR VOLUME 103.8 fL (80.0-94.0); MEAN PLATELET VOLUME 10.5 fl (7.4-10.4); MONOCYTES % 11.4 % (2.0-8.0); NEUTROPHILS % 74.9 % (40.0-76.0); PLATELET 104 x1000/uL (130-400); RED BLOOD CELL COUNT 2.62 mill/uL (4.7-6.1); RED CELL DISTRIBUTION WIDTH 16.3 % (11.6-14.6)
[2021-02-10 08:00] VITALS: BP 130/104
[2021-02-10] MEDS: VANCOMYCIN 1250MG in DEXTROSE 5% WATER 250ML IV SCH (08:28)
[2021-02-10] MEDS: ASCORBIC ACID 500 MG TABLET PO SCH (08:28)
[2021-02-10] MEDS: ZINC SULFATE 220 MG ( 50 ) CAPSULE PO SCH (08:28)
[2021-02-10] MEDS: FAMOTIDINE 20MG/2ML VIAL IV SCH (08:28)
[2021-02-10] MEDS: INSULIN GLARGINE UD 100 UNITS/ML SYR SUBCUT SCH (11:27)
[2021-02-10] MEDS: TRAMADOL 50MG TABLET PO PRN (11:29)
[2021-02-10 12:00] VITALS: BP 128/59
[2021-02-10 12:41] VITALS: BP 128/59
[2021-02-10] MEDS ORDERED: FLUCONAZOLE 100MG TABLET PO SCH (18:00)
[2021-02-11] MEDS ORDERED: VANCOMYCIN 1 G PREMIX 200 ML IV SCH (20:00)
== END 2021-02-10 14:20 | DRG 856 ==
LOC: ER 17:02 → 3WST 23:15 → EDBEDREQ 23:20 → EDBEDREQSVC 23:20 → EDBEDREQTM 23:20 → ENRESERV 23:57 → CVICU 01-30 04:12 → 7EST 02-03 17:59
PROVIDERS: ADMIT Family Medicine; ATTEND Family Medicine
PROC: 02HV33Z Insertion of Infusion Device into Superior Vena Cava, Percutaneous Approach (ICD-10-PCS; 2021-01-30)
PROC: B548ZZA Ultrasonography of Superior Vena Cava, Guidance (ICD-10-PCS; 2021-01-30)
PROC: 30233K1 Transfusion of Nonautologous Frozen Plasma into Peripheral Vein, Percutaneous Approach (ICD-10-PCS; 2021-01-30)
PROC: 0F944ZZ Drainage of Gallbladder, Percutaneous Endoscopic Approach (ICD-10-PCS; principal; 2021-01-31)
PROC: 5A1945Z Respiratory Ventilation, 24-96 Consecutive Hours (ICD-10-PCS; 2021-01-31)
PROC: 0J980ZZ Drainage of Abdomen Subcutaneous Tissue and Fascia, Open Approach (ICD-10-PCS; 2021-01-31)
PROC: 0HBRXZZ Excision of Toe Nail, External Approach (ICD-10-PCS; 2021-02-01)
PROC: 0HBRXZZ Excision of Toe Nail, External Approach (ICD-10-PCS; 2021-02-01)
PROC: 0HBRXZZ Excision of Toe Nail, External Approach (ICD-10-PCS; 2021-02-01)
PROC: 0HBRXZZ Excision of Toe Nail, External Approach (ICD-10-PCS; 2021-02-01)
PROC: 0HBRXZZ Excision of Toe Nail, External Approach (ICD-10-PCS; 2021-02-01)
PROC: 0HBRXZZ Excision of Toe Nail, External Approach (ICD-10-PCS; 2021-02-01)
PROC: 0HBRXZZ Excision of Toe Nail, External Approach (ICD-10-PCS; 2021-02-01)
PROC: 0HBRXZZ Excision of Toe Nail, External Approach (ICD-10-PCS; 2021-02-01)
PROC: 0HBRXZZ Excision of Toe Nail, External Approach (ICD-10-PCS; 2021-02-01)
PROC: 0HBRXZZ Excision of Toe Nail, External Approach (ICD-10-PCS; 2021-02-01)
DX: T81.49XA Infection following a procedure, other surgical site, initial encounter (principal); L89.153 Pressure ulcer of sacral region, stage 3; A41.02 Sepsis due to Methicillin resistant Staphylococcus aureus; R65.21 Severe sepsis with septic shock; J96.00 Acute respiratory failure, unspecified whether with hypoxia or hypercapnia; E43 Unspecified severe protein-calorie malnutrition; G93.41 Metabolic encephalopathy; N17.9 Acute kidney failure, unspecified; R18.8 Other ascites; E87.1 Hypo-osmolality and hyponatremia; D68.4 Acquired coagulation factor deficiency; L02.216 Cutaneous abscess of umbilicus; K91.870 Postprocedural hematoma of a digestive system organ or structure following a digestive system procedure; E87.4 Mixed disorder of acid-base balance; N18.9 Chronic kidney disease, unspecified; E87.5 Hyperkalemia; E78.5 Hyperlipidemia, unspecified; D64.9 Anemia, unspecified; D69.6 Thrombocytopenia, unspecified; E11.22 Type 2 diabetes mellitus with diabetic chronic kidney disease; E83.39 Other disorders of phosphorus metabolism; E83.51 Hypocalcemia; M19.90 Unspecified osteoarthritis, unspecified site; F10.10 Alcohol abuse, uncomplicated; K21.9 Gastro-esophageal reflux disease without esophagitis; Y83.6 Removal of other organ (partial) (total) as the cause of abnormal reaction of the patient, or of later complication, without mention of misadventure at the time of the procedure; M19.071 Primary osteoarthritis, right ankle and foot; I12.9 Hypertensive chronic kidney disease with stage 1 through stage 4 chronic kidney disease, or unspecified chronic kidney disease; K74.60 Unspecified cirrhosis of liver; Z20.822 Contact with and (suspected) exposure to COVID-19; R79.89 Other specified abnormal findings of blood chemistry; E11.51 Type 2 diabetes mellitus with diabetic peripheral angiopathy without gangrene; L60.2 Onychogryphosis; Z90.49 Acquired absence of other specified parts of digestive tract; Z82.49 Family history of ischemic heart disease and other diseases of the circulatory system; Z68.26 Body mass index [BMI] 26.0-26.9, adult; Y92.89 Other specified places as the place of occurrence of the external cause; Z91.81 History of falling
CPT/HCPCS: 36415; 36600; 71045; 73630; 74176; 76770; 76937; 80048; 80053; 80061; 80202; 80305; 81003; 82040; 82140; 82375; 82550; 82553; 82693; 82805; 82962; 83036; 83605; 83735; 83880; 84100; 84134; 84145; 84439; 84443; 84478; 84484; 85014; 85018; 85025; 85362; 85379; 85384; 86022; 86850; 86900; 86927; 87070; 87075; 87077; 87106; 87186; 87426; 88304; 92610; 93005; 93306; 93923; 93970; 94002; 94003; 97162; 97166; 97530; 99291; C1725; J1450; J1815; J2250; J2270; J2543; J3010; J3370; J3480; J3490; J7030; J7042; J7050; J7060; J7070; J7131; P9017; P9041; P9047; A4315

== ENCOUNTER 2021-02-13 18:26 | Inpatient (IN) | payer MEDICARE, MEDICAID ==
[~2021-02-13] VITALS: Ht 172.7 cm; Wt 79.4 kg
[~2021-02-13 18:26] MED LIST changes: +FAMO40TA70 MT; +FLUC200T MT; +INSLIS SUBCUT; +LANTUSUD SUBCUT; -LEVO500T89 MT; -METF-414 MT; -METR500T MT
[2021-02-13] MEDS ORDERED: SODIUM CHLORIDE 0.9% 1000ML BAG (SEPSIS BOLUS) IV ONE (20:00)
[2021-02-13] MEDS ORDERED: VANCOMYCIN 1 G PREMIX 200 ML IV ONE (20:00)
[2021-02-13] MEDS ORDERED: CEFTRIAXONE 1 G PREMIX 50 ML IV ONE (20:00)
[2021-02-13 20:26] LABS: HEMATOCRIT. 27.1 % (42.0-52.0); HEMOGLOBIN. 8.7 g/dL (14.0-18.0); MEAN CORPUSCULAR HEMOGLOBIN 34.3 pg (28.0-32.0); MEAN CORPUSCULAR VOLUME 106.8 fL (80.0-94.0); MEAN PLATELET VOLUME 10.9 fl (7.4-10.4); PLATELET 109 x1000/uL (130-400); RED BLOOD CELL COUNT 2.54 mill/uL (4.7-6.1); RED CELL DISTRIBUTION WIDTH 17.2 % (11.6-14.6)
[2021-02-13 20:32] LABS: CHLORIDE 112 mEq/L (98-107)
[2021-02-13 20:50] LABS: INR 1.6; PROTHROMBIN TIME 16.7 sec (9.6-11.0)
[2021-02-13 21:07] LABS: PLATELET ESTIMATE DECREASED
[2021-02-13 22:35] LABS: CLARITY URINE TURBID (CLEAR); COLOR URINE DARK YELLOW (YELLOW); KETONES URINE TRACE (NEGATIVE); LEUKOCYTE ESTERASE URINE 3+ (NEGATIVE); NITRITE URINE NEGATIVE (NEGATIVE); OCCULT BLOOD URINE 2+ (NEGATIVE); PROTEIN URINE 1+ (NEGATIVE); SPECIFIC GRAVITY URINE 1.019 (1.005-1.030)
[2021-02-13] MEDS ORDERED: FLUCONAZOLE 200 MG/100ML BAG 100 MG in CONTAINER,EMPTY 0 BAG IV SCH (23:15)
[2021-02-14 04:00] VITALS: BP 109/85
[2021-02-14 04:19] VITALS: BP 109/85
[2021-02-14] MEDS ORDERED: METF-874 MT (05:04)
[2021-02-14] MEDS ORDERED: ACETAMINOPHEN 325MG TABLET PO PRN (05:15)
[2021-02-14] MEDS ORDERED: DEXTROSE 50% WATER 50ML SYRINGE IV PRN (05:30)
[2021-02-14] MEDS ORDERED: NALOXONE HCL 0.4MG/ML VIAL IV PRN (06:30)
[2021-02-14 07:50] VITALS: BP 107/40
[2021-02-14] MEDS: INSULIN LISPRO 100 UNITS/ML SUBCUT SCH ×4 (07:50→20:32)
[2021-02-14] MEDS: BLOOD SUGAR DIAGNOSTIC STRIP TEST SCH ×4 (07:54→20:32)
[2021-02-14] MEDS ORDERED: CEFEPIME HCL 1000MG/VIAL INJ IM SCH (09:00)
[2021-02-14] MEDS: CEFEPIME 1,000 MG in DEXTROSE 5% WATER 50 ML IV SCH ×2 (09:13→20:27)
[2021-02-14] MEDS: SODIUM CHLORIDE 0.9% 1,000 ML IV SCH (09:13)
[2021-02-14 11:12] VITALS: BP 109/42
[2021-02-14] MEDS ORDERED: FLUCONAZOLE 100MG TABLET PO SCH (14:30)
[2021-02-14 15:26] VITALS: BP 110/40
[2021-02-14 17:51] LABS: BASOPHILS % 1.5 % (0.0-2.0); EOSINOPHILS % 2.9 % (0.0-5.0); HEMATOCRIT. 27.8 % (42.0-52.0); HEMOGLOBIN. 9.1 g/dL (14.0-18.0); LYMPHOCYTES % 13.3 % (20.0-50.0); MEAN CORPUSCULAR HEMOGLOBIN 34.5 pg (28.0-32.0); MEAN CORPUSCULAR VOLUME 105.8 fL (80.0-94.0); MEAN PLATELET VOLUME 10.5 fl (7.4-10.4); MONOCYTES % 14.2 % (2.0-8.0); NEUTROPHILS % 68.1 % (40.0-76.0); PLATELET 105 x1000/uL (130-400); RED BLOOD CELL COUNT 2.62 mill/uL (4.7-6.1)
[2021-02-14 20:00] VITALS: BP 119/57
[2021-02-15] VITALS (9 sets, daily range): BP systolic 82–131; BP diastolic 49–79
[2021-02-15] MEDS: SODIUM CHLORIDE 0.9% 1,000 ML IV SCH ×2 (02:40→12:31)
[2021-02-15] MEDS: BLOOD SUGAR DIAGNOSTIC STRIP TEST SCH ×4 (06:22→22:02)
[2021-02-15] MEDS: INSULIN LISPRO 100 UNITS/ML SUBCUT SCH ×4 (07:50→21:00)
[2021-02-15] MEDS ORDERED: CEFEPIME 1,000 MG in DEXTROSE 5% WATER 50 ML IV SCH (08:00)
[2021-02-15] MEDS: FLUCONAZOLE 100MG TABLET PO SCH (08:45)
[2021-02-15 11:22] LABS: BASOPHILS % 2.1 % (0.0-2.0); EOSINOPHILS % 2.4 % (0.0-5.0); HEMATOCRIT. 27.5 % (42.0-52.0); HEMOGLOBIN. 9.3 g/dL (14.0-18.0); LYMPHOCYTES % 16.9 % (20.0-50.0); MEAN CORPUSCULAR HEMOGLOBIN 35.2 pg (28.0-32.0); MEAN CORPUSCULAR VOLUME 104.5 fL (80.0-94.0); MEAN PLATELET VOLUME 10.7 fl (7.4-10.4); MONOCYTES % 13.4 % (2.0-8.0); NEUTROPHILS % 65.2 % (40.0-76.0); PLATELET 105 x1000/uL (130-400); RED BLOOD CELL COUNT 2.63 mill/uL (4.7-6.1); RED CELL DISTRIBUTION WIDTH 15.8 % (11.6-14.6)
[2021-02-15 11:27] LABS: CHLORIDE 110 mEq/L (98-107)
[2021-02-15] MEDS ORDERED: VANCOMYCIN 1 G PREMIX 200 ML IV NR (15:00)
[2021-02-15] MEDS ORDERED: SODIUM POLYSTYRENE SULFONATE 15 G/60 ML BOT PO NR (18:30)
[2021-02-16] VITALS (8 sets, daily range): BP systolic 79–128; BP diastolic 35–88
[2021-02-16] MEDS: BLOOD SUGAR DIAGNOSTIC STRIP TEST SCH ×4 (06:32→21:55)
[2021-02-16 07:19] LABS: BASOPHILS % 2.1 % (0.0-2.0); EOSINOPHILS % 2.6 % (0.0-5.0); HEMATOCRIT. 27.7 % (42.0-52.0); HEMOGLOBIN. 9.1 g/dL (14.0-18.0); LYMPHOCYTES % 16.7 % (20.0-50.0); MEAN CORPUSCULAR HEMOGLOBIN 34.1 pg (28.0-32.0); MEAN CORPUSCULAR VOLUME 104.1 fL (80.0-94.0); MEAN PLATELET VOLUME 10.1 fl (7.4-10.4); MONOCYTES % 14.2 % (2.0-8.0); NEUTROPHILS % 64.4 % (40.0-76.0); PLATELET 107 x1000/uL (130-400); RED BLOOD CELL COUNT 2.66 mill/uL (4.7-6.1); RED CELL DISTRIBUTION WIDTH 16.6 % (11.6-14.6)
[2021-02-16] MEDS: INSULIN LISPRO 100 UNITS/ML SUBCUT SCH ×4 (07:50→21:55)
[2021-02-16] MEDS: FLUCONAZOLE 100MG TABLET PO SCH (09:08)
[2021-02-16] MEDS: SODIUM CHLORIDE 0.9% 1,000 ML IV SCH (12:03)
[2021-02-16] MEDS ORDERED: FUROSEMIDE 40MG/4ML VIAL IVP NR (20:00)
[2021-02-17] VITALS: BP 111/74
[2021-02-17 04:00] VITALS: BP 109/55
[2021-02-17] MEDS: BLOOD SUGAR DIAGNOSTIC STRIP TEST SCH ×4 (06:37→17:35)
[2021-02-17 07:29] LABS: BASOPHILS % 1.4 % (0.0-2.0); EOSINOPHILS % 2.3 % (0.0-5.0); HEMATOCRIT. 28.6 % (42.0-52.0); HEMOGLOBIN. 9.6 g/dL (14.0-18.0); LYMPHOCYTES % 18.9 % (20.0-50.0); MEAN CORPUSCULAR HEMOGLOBIN 34.5 pg (28.0-32.0); MEAN CORPUSCULAR VOLUME 102.5 fL (80.0-94.0); MEAN PLATELET VOLUME 10.5 fl (7.4-10.4); MONOCYTES % 14.4 % (2.0-8.0); PLATELET 109 x1000/uL (130-400); RED BLOOD CELL COUNT 2.79 mill/uL (4.7-6.1); RED CELL DISTRIBUTION WIDTH 16.5 % (11.6-14.6)
[2021-02-17] MEDS: INSULIN LISPRO 100 UNITS/ML SUBCUT SCH ×4 (07:50→21:00)
[2021-02-17 08:43] VITALS: BP 125/46
[2021-02-17] MEDS: FLUCONAZOLE 100MG TABLET PO SCH (09:01)
[2021-02-17 12:12] VITALS: BP 145/56
[2021-02-17] MEDS: MORPHINE SULFATE 2 MG/ML CPJ (NOT FOR IM USE) IV PRN ×2 (13:09→18:55)
[2021-02-17] MEDS ORDERED: SODIUM CHLORIDE 0.9% 1,000 ML IV SCH (15:00)
[2021-02-17] MEDS ORDERED: ALBUMIN HUMAN 25GM/100ML (25%) IV NR (16:00)
[2021-02-17 16:11] VITALS: BP 130/54
[2021-02-17 20:00] VITALS: BP 108/51
[2021-02-18] VITALS: BP 115/59
[2021-02-18 04:00] VITALS: BP 109/59
[2021-02-18 06:26] LABS: BASOPHILS % 2.2 % (0.0-2.0); EOSINOPHILS % 3.8 % (0.0-5.0); HEMATOCRIT. 31.4 % (42.0-52.0); HEMOGLOBIN. 10.1 g/dL (14.0-18.0); LYMPHOCYTES % 20.4 % (20.0-50.0); MEAN CORPUSCULAR HEMOGLOBIN 34.6 pg (28.0-32.0); MEAN CORPUSCULAR VOLUME 107.5 fL (80.0-94.0); MEAN PLATELET VOLUME 9.3 fl (7.4-10.4); MONOCYTES % 14.8 % (2.0-8.0); NEUTROPHILS % 58.8 % (40.0-76.0); PLATELET 98 x1000/uL (130-400); RED BLOOD CELL COUNT 2.92 mill/uL (4.7-6.1); RED CELL DISTRIBUTION WIDTH 17.4 % (11.6-14.6)
[2021-02-18 07:07] LABS: PHOSPHORUS 4.9 mg/dL (2.5-4.9)
[2021-02-18] MEDS: INSULIN LISPRO 100 UNITS/ML SUBCUT SCH ×4 (07:50→21:52)
[2021-02-18 08:00] VITALS: BP 113/61
[2021-02-18] MEDS: BLOOD SUGAR DIAGNOSTIC STRIP TEST SCH ×4 (08:10→21:23)
[2021-02-18] MEDS: FLUCONAZOLE 100MG TABLET PO SCH (09:08)
[2021-02-18] MEDS: MORPHINE SULFATE 2 MG/ML CPJ (NOT FOR IM USE) IV PRN ×2 (09:40→16:10)
[2021-02-18 11:18] LABS: CREATINE KINASE 39 IU/L (39-308)
[2021-02-18 12:00] VITALS: BP 131/63
[2021-02-18 16:00] VITALS: BP 111/57
[2021-02-18 20:00] VITALS: BP 105/62
[2021-02-19] VITALS: BP 102/66
[2021-02-19 04:00] VITALS: BP 112/63
[2021-02-19 06:33] LABS: HEMATOCRIT. 28.9 % (42.0-52.0); HEMOGLOBIN. 9.7 g/dL (14.0-18.0); MEAN CORPUSCULAR HEMOGLOBIN 34.3 pg (28.0-32.0); MEAN CORPUSCULAR VOLUME 102.7 fL (80.0-94.0); PLATELET 107 x1000/uL (130-400); RED BLOOD CELL COUNT 2.82 mill/uL (4.7-6.1); RED CELL DISTRIBUTION WIDTH 16.6 % (11.6-14.6)
[2021-02-19] MEDS: BLOOD SUGAR DIAGNOSTIC STRIP TEST SCH ×4 (06:33→21:14)
[2021-02-19 07:11] LABS: PHOSPHORUS 5.1 mg/dL (2.5-4.9)
[2021-02-19] MEDS: INSULIN LISPRO 100 UNITS/ML SUBCUT SCH ×4 (07:50→21:00)
[2021-02-19 08:00] VITALS: BP 120/62
[2021-02-19] MEDS: FLUCONAZOLE 100MG TABLET PO SCH (09:00)
[2021-02-19 12:00] VITALS: BP 127/61
[2021-02-19 16:00] VITALS: BP 113/55
[2021-02-19 17:11] LABS: PLATELET ESTIMATE DECREASED
[2021-02-19] MEDS ORDERED: NALOXONE HCL 0.4MG/ML VIAL IV PRN (17:30)
[2021-02-19] MEDS: HYDROCODONE/ACETAMINOPHEN 5/325MG TABLET PO PRN (17:32)
[2021-02-19 20:00] VITALS: BP 111/53
[2021-02-20] VITALS (7 sets, daily range): BP systolic 117–141; BP diastolic 52–97
[2021-02-20] MEDS: BLOOD SUGAR DIAGNOSTIC STRIP TEST SCH ×3 (06:38→17:07)
[2021-02-20 06:54] LABS: HEMATOCRIT. 28.7 % (42.0-52.0); HEMOGLOBIN. 9.6 g/dL (14.0-18.0); MEAN PLATELET VOLUME 9.9 fl (7.4-10.4); PLATELET 103 x1000/uL (130-400); RED BLOOD CELL COUNT 2.81 mill/uL (4.7-6.1); RED CELL DISTRIBUTION WIDTH 16.8 % (11.6-14.6)
[2021-02-20 06:55] LABS: CHLORIDE 112 mEq/L (98-107)
[2021-02-20 07:06] LABS: PHOSPHORUS 5.4 mg/dL (2.5-4.9)
[2021-02-20] MEDS: INSULIN LISPRO 100 UNITS/ML SUBCUT SCH ×3 (07:50→17:08)
[2021-02-20] MEDS ORDERED: INSLIS SUBCUT (11:10)
[2021-02-20] MEDS: HYDROCODONE/ACETAMINOPHEN 5/325MG TABLET PO PRN (17:19)
[2021-02-20 18:46] LABS: PLATELET ESTIMATE DECREASED
== END 2021-02-20 18:53 | DRG 871 ==
LOC: ER 18:26 → 6WST 23:20 → EDBEDREQ 23:37 → EDBEDREQTM 23:37 → ENRESERV 02-14 00:12
PROVIDERS: ADMIT Family Medicine; ATTEND Family Medicine
DX: A41.1 Sepsis due to other specified staphylococcus (principal); E43 Unspecified severe protein-calorie malnutrition; N17.0 Acute kidney failure with tubular necrosis; B37.49 Other urogenital candidiasis; J98.11 Atelectasis; E11.22 Type 2 diabetes mellitus with diabetic chronic kidney disease; E78.5 Hyperlipidemia, unspecified; R09.02 Hypoxemia; I12.9 Hypertensive chronic kidney disease with stage 1 through stage 4 chronic kidney disease, or unspecified chronic kidney disease; D53.9 Nutritional anemia, unspecified; E78.00 Pure hypercholesterolemia, unspecified; N18.2 Chronic kidney disease, stage 2 (mild); D69.6 Thrombocytopenia, unspecified; M19.90 Unspecified osteoarthritis, unspecified site; K70.30 Alcoholic cirrhosis of liver without ascites; Z90.49 Acquired absence of other specified parts of digestive tract; Z82.49 Family history of ischemic heart disease and other diseases of the circulatory system; Z83.3 Family history of diabetes mellitus; Z79.899 Other long term (current) drug therapy; Z68.26 Body mass index [BMI] 26.0-26.9, adult; F10.21 Alcohol dependence, in remission
CPT/HCPCS: 36415; 71045; 74176; 80048; 80053; 80202; 81003; 82550; 82962; 83036; 83605; 83735; 84100; 84145; 84484; 85025; 87077; 87186; 93005; 93970; 97162; 99291; J0692; J0696; J1450; J1815; J1940; J2270; J3370; J7030; J7040; J7060; P9047